=== PATIENT | female | born 1980 | race Caucasian/White ===

== ENCOUNTER → 2021-03-22 | Day surgery (SDC) | payer OTHER ==
[~2021-03-22] VITALS: Ht 160 cm; Wt 83.9 kg
[~2021-03-22] MED LIST: ADDERALL 30 MG30 MG PO; ARMOUR THYROID120 MG PO; ARMOUR THYROID15 MG PO; GABAPENTIN600 MG PO; TAMOXIFEN CITRA20 MG PO; VENLAFAXINE H37.5 M1 PO
[2021-03-22 07:38] LABS: HCG (URINE) SCREEN NEGATIVE (NEGATIVE)
== END | disposition home or self-care (01) ==
LOC: FAS 07:05
PROVIDERS: Anesthesiology
DX: D12.3 Benign neoplasm of transverse colon (principal); D50.9 Iron deficiency anemia, unspecified; E03.9 Hypothyroidism, unspecified; F41.9 Anxiety disorder, unspecified; Z80.0 Family history of malignant neoplasm of digestive organs; Z88.8 Allergy status to other drugs, medicaments and biological substances; Z79.899 Other long term (current) drug therapy
CPT/HCPCS: 84703; J2250; J2704; J7120

== ENCOUNTER 2021-08-13 09:18 | Day surgery (SDCO) | payer OTHER ==
[~2021-08-13] VITALS: Ht 160 cm; Wt 87.7 kg
[~2021-08-13 09:18] MED LIST changes: +OYSTER SHELL 51 EACH PO
[2021-08-13 09:43] LABS: HCG (URINE) SCREEN NEGATIVE (NEGATIVE)
[2021-08-13 09:54] LABS: HCT 38.8 % (37.0-47.0); HGB 13.2 g/dl (12.5-16.0); MCH 29.4 pg (25.0-31.0); MCV 86.4 fL (78.0-100.0); MPV 9.9 fL (6.0-9.5); RBC 4.49 M/uL (4.20-5.40); RDW 13.2 % (11.5-14.0); WBC 4.8 K/uL (4.0-10.5)
[2021-08-14 00:09] LABS: ALBUMIN 2.6 g/dL (3.4-5.0); BILIRUBIN - TOTAL 0.9 mg/dL (0.2-1.0); BUN/CREAT RATIO (CALC) 16.9 RATIO; CREATININE 0.83 mg/dL (0.51-0.95); POTASSIUM 4.9 mmol/L (3.5-5.1); TOTAL PROTEIN 5.6 g/dL (6.4-8.2)
[2021-08-14 00:13] LABS: BASOPHIL 0.1 % (0-2); EOSINOPHIL 0 % (0-5); HCT 30.4 % (37.0-47.0); HGB 9.9 g/dl (12.5-16.0); LYMPHOCYTE 4.6 % (15-48); MCH 29.6 pg (25.0-31.0); MCHC 32.6 g/dL (32.0-36.0); MONOCYTE 4.5 % (0-12); MPV 10.2 fL (6.0-9.5); NRBC 0; PLT 295 K/uL (150-400); RBC 3.35 M/uL (4.20-5.40); RDW 13.6 % (11.5-14.0)
[2021-08-14 00:16] LABS: MCV 90.7 fL (78.0-100.0); NEUTROPHIL 90.4 % (41-80); WBC 20.3 K/uL (4.0-10.5)
--- NOTE | 2021-08-14 14:00 | NUR ---
1400 VAGINAL PACKING HAS BEEN REMOVED, SMALL AMOUNT OF BLOODY DRAINAGE IS NOTED AT IN THE VAGINAL AREA. MEL PAD WAS PLACED IN THE AREA, WILL MONITOR FOR INCREASED DRAINAGE. TOLEATERD THE PROCEDURE WITHOUT ANY PROBLEMS.
[2021-08-15 12:28] LABS: HCT 19.4 % (37.0-47.0); MCH 30.6 pg (25.0-31.0); MCV 89.8 fL (78.0-100.0); MPV 10.1 fL (6.0-9.5); RBC 2.16 M/uL (4.20-5.40)
[2021-08-15 12:38] LABS: HGB 6.6 g/dl (12.5-16.0)
[2021-08-15 22:07] LABS: HCT 24.4 % (37.0-47.0); HGB 8.4 g/dl (12.5-16.0); MCH 30.2 pg (25.0-31.0); MCHC 34.4 g/dL (32.0-36.0); MCV 87.8 fL (78.0-100.0); MPV 9.8 fL (6.0-9.5); RBC 2.78 M/uL (4.20-5.40); RDW 14.1 % (11.5-14.0); WBC 7.6 K/uL (4.0-10.5)
[2021-08-16 06:32] LABS: HCT 25.4 % (37.0-47.0); HGB 8.5 g/dl (12.5-16.0); MCH 30.7 pg (25.0-31.0); MCHC 33.5 g/dL (32.0-36.0); MCV 91.7 fL (78.0-100.0); MPV 9.7 fL (6.0-9.5); RBC 2.77 M/uL (4.20-5.40); RDW 14.5 % (11.5-14.0); WBC 6.3 K/uL (4.0-10.5)
--- NOTE | 2021-08-16 14:59 | NUR ---
08/16/21 Ms. Moreno shares a home with her s.o. She is employed and reports to be able to meet her financial obligations. - No discharge planning needs are anticipated.
[2021-08-16] MEDS ORDERED: ZOLOFT100 MG PO (17:37)
== END 2021-08-16 17:51 | disposition home or self-care (01) ==
LOC: FAS 09:18 → FMS 20:48 → FAS 08-14 12:33 → FMS 08-14 12:34
PROVIDERS: ADMIT Specialist
DX: N84.0 Polyp of corpus uteri (principal); N80.0 Endometriosis of uterus; N72 Inflammatory disease of cervix uteri; N87.9 Dysplasia of cervix uteri, unspecified; N83.292 Other ovarian cyst, left side; N83.291 Other ovarian cyst, right side; D25.9 Leiomyoma of uterus, unspecified; N73.6 Female pelvic peritoneal adhesions (postinfective); D62 Acute posthemorrhagic anemia; Z88.8 Allergy status to other drugs, medicaments and biological substances; Z85.3 Personal history of malignant neoplasm of breast
CPT/HCPCS: 36415; 36430; 74018; 74019; 80053; 84703; 85025; 86850; 86900; 86901; 86922; G0378; J0610; J0690; J1100; J1170; J1885; J2250; J2370; J2405; J2704; J2916; J3010; J7120; P9016

== ENCOUNTER 2021-08-18 10:45 | Emergency (ER) | payer OTHER ==
[~2021-08-18 10:45] MED LIST changes: +ZOLOFT100 MG PO
[2021-08-18] MEDS ORDERED: NAPROXEN500 MG PO (13:19)
[2021-08-18] MEDS ORDERED: KEFLEX250 MG PO (13:19)
== END 2021-08-18 13:39 | disposition home or self-care (01) ==
LOC: FER 10:45
DX: I80.8 Phlebitis and thrombophlebitis of other sites (principal); Z88.8 Allergy status to other drugs, medicaments and biological substances; Z28.310 Unvaccinated for COVID-19
CPT/HCPCS: 93971